=== PATIENT | male | born 1930 | race Caucasian/White ===

== ENCOUNTER → 2017-12-20 | Outpatient (CLI) | payer MEDICARE | END | disposition home or self-care (01) | LOC: PCVCCLINIC 16:47 | PROVIDERS: ATTEND Internal Medicine | DX: I25.10 Atherosclerotic heart disease of native coronary artery without angina pectoris (principal); I12.9 Hypertensive chronic kidney disease with stage 1 through stage 4 chronic kidney disease, or unspecified chronic kidney disease; E11.22 Type 2 diabetes mellitus with diabetic chronic kidney disease; N18.3 Chronic kidney disease, stage 3 (moderate); E78.5 Hyperlipidemia, unspecified; Z79.82 Long term (current) use of aspirin; Z87.891 Personal history of nicotine dependence; Z79.4 Long term (current) use of insulin | CPT/HCPCS: 93005; G0463 ==

== ENCOUNTER → 2018-06-23 | Outpatient (CLI) | payer MEDICARE ==
--- NOTE | 2018-06-23 16:07 | PCVCIMAG ---
APPROVED REPORT Study performed: 06/23/2018 14:24:20 EXAM: Comprehensive 2D, Doppler, and color-flow Echocardiogram Patient Location: Echo lab Status: routine BSA: 1.90 HR: 78 bpmBP: 110/60 mmHg Rhythm: NSR Other Information Study Quality: Good Risk Factors: Cardiac Risk Factors: HTN, Hyperlipidemia Indications Diabetes CAD Hypertension/HDD Stent 2D Dimensions IVSd: 11.47 (7-11mm)LVOT Diam: 19.84 (18-24mm) LVDd: 35.91 mm PWd: 12.28 (7-11mm)Ascending Ao: 29.37 (22-36mm) LVDs: 24.54 (25-40mm) Left Atrium: 29.22 (27-40mm) Aortic Root: 26.44 mm LV Single Plane 4CH: 54.84 % LV Single Plane 2CH: 59.71 % Biplane EF: 58.3 % Volumes Left Atrial Volume (Systole) Single Plane 4CH: 28.35 mLSingle Plane 2CH: 33.31 mL LA ESV Index: 17.00 mL/m2 Aortic Valve AoV Peak Luis.: 1.13 m/s AO Peak Gr.: 5.13 mmHgLVOT Max P.29 mmHg LVOT Max V: 0.91 m/s ZAHIDA Vmax: 2.48 cm2 Mitral Valve E/A Ratio: 0.7 MV Decel. Time: 331.43 ms MV E Max Luis.: 0.65 m/s MV A Luis.: 0.91 m/s TDI E/Lateral E': 8.13E/Medial E': 16.25 Medial E' Luis.: 0.04 m/s Lateral E' Luis.: 0.08 m/s Pulmonary Valve PV Peak Gr.: 2.12 mmHg Pulmonary Vein P Vein S: 0.85 m/sP Vein A: 0.36 m/s P Vein D: 0.31 m/sP Vein A Dur.: 117.6 msec P Vein S/D Ratio: 2.74 Left Ventricle The left ventricle is normal size. There is normal LV segmental wall motion. There is normal left ventricular wall thickness. Left ventricular systolic function is normal. The left ventricular ejection fraction is within the normal range. LVEF is >55%. Mild diastolic dysfunction is present (impaired relaxation pattern). Right Ventricle The right ventricle is normal size. The right ventricular systolic function is normal. Atria The left atrium size is normal. The right atrium size is normal. Aortic Valve The aortic valve is trileaflet, mildly sclerotic. No aortic regurgitation is present. There is no aortic valvular stenosis. Mitral Valve The mitral valve is normal in structure. There is no mitral valve regurgitation noted. No evidence of mitral valve stenosis. Tricuspid Valve The tricuspid valve is normal in structure. There is no tricuspid valve regurgitation noted. Pulmonic Valve The pulmonary valve is normal in structure. There is no pulmonic valvular regurgitation. Great Vessels The aortic root is normal in size. IVC is normal in size and collapses >50% with inspiration. Pericardium There is no pericardial effusion. <Conclusion> Left ventricular systolic function is normal. There is normal LV segmental wall motion. LVEF is >55%. Mild diastolic dysfunction The aortic valve is trileaflet, mildly sclerotic. No aortic regurgitation or stenosis The mitral valve is normal in structure. No mitral valve regurgitation Pulmonary artery pressure could not be reliably ascertained. There is no pericardial effusion.
== END | disposition home or self-care (01) ==
LOC: PCVCIMAG 14:24
PROVIDERS: ATTEND Internal Medicine
DX: I25.10 Atherosclerotic heart disease of native coronary artery without angina pectoris (principal); E78.5 Hyperlipidemia, unspecified; I12.9 Hypertensive chronic kidney disease with stage 1 through stage 4 chronic kidney disease, or unspecified chronic kidney disease; E11.22 Type 2 diabetes mellitus with diabetic chronic kidney disease; N18.3 Chronic kidney disease, stage 3 (moderate); K21.9 Gastro-esophageal reflux disease without esophagitis; Z79.82 Long term (current) use of aspirin; Z87.891 Personal history of nicotine dependence
CPT/HCPCS: 36415; 80061; 93306; G0463

== ENCOUNTER → 2018-12-21 | Outpatient (CLI) | payer MEDICARE | END | disposition home or self-care (01) | LOC: PCVCCLINIC 14:48 | PROVIDERS: ATTEND Internal Medicine | DX: I25.10 Atherosclerotic heart disease of native coronary artery without angina pectoris (principal); I12.9 Hypertensive chronic kidney disease with stage 1 through stage 4 chronic kidney disease, or unspecified chronic kidney disease; E11.22 Type 2 diabetes mellitus with diabetic chronic kidney disease; N18.3 Chronic kidney disease, stage 3 (moderate); E78.5 Hyperlipidemia, unspecified; K21.9 Gastro-esophageal reflux disease without esophagitis; Z79.82 Long term (current) use of aspirin | CPT/HCPCS: G0463 ==